=== PATIENT | female | born 1995 | race Caucasian/White ===

== ENCOUNTER → 2018-01-05 | Day surgery (SDC) | payer OTHER ==
[2017-12-01 12:09] VITALS: Ht 167.6 cm; Wt 56.4 kg
[~2018-01-05] VITALS: Ht 167.6 cm; Wt 56.4 kg
[~2018-01-05] MED LIST: ATROPINE SULFATE 0.1 MG/ML 5ML SYR IV PRN; BCPILLS PO; BUPIVACAINE 0.5 % 5 MG/1 ML MPF 30ML VIAL ONE; CITA40TA12 PO; CLINDAMYCIN PHOS 150 MG/ML 2 ML VIAL IV SCH; DEXAMETHASONE SOD INJ 4 MG/ML VIAL ONE; FENTANYL CITRATE INJ 50 MCG/1 ML 2 ML VIAL ONE; HYDR-5688 PO; HYDROCODONE/ACETAMIN 5/325MG TAB ONE; KETOROLAC TROMETHAMINE 30 MG/ML VIAL ONE; LACTATED RINGER'S 1000ML 1,000 ML IV SCH; LIDOCAINE HCL 2% 2 ML VIAL (20MG/ML) ONE; MIDAZOLAM HCL 1 MG/ML 2ML VIAL ONE; NURSING VERBAL MED ORDER ONE; ONDANSETRON INJ 2 MG/ML 2 ML VIAL IV PRN; ONDANSETRON INJ 2 MG/ML 2 ML VIAL ONE; PROPOFOL IV EMULSION 10 MG/ML 20 ML VIAL IV ONE; VISTARIL PO
--- NOTE | 2018-01-05 08:12 | History & Physical Bridge - [place] ---
H&P Re-Evaluation Bridge Note: I have examined the patient, reviewed the History & Physical and in the interval since the performance of the History & Physical I have noted the following changes of clinical significance: No changes noted
--- NOTE | 2018-01-05 08:13 | [facility] Post Operative Brief Note ---
Immediate Operative Summary Operative Date Jan 05, 2018. Pre-Operative Diagnosis Right hallux valgus and Hallux Rigidus Post-Operative Diagnosis Right hallux valgus and Hallux Rigidus Procedure(s) Performed Modified maykel bunionectomy Surgeon Honorio Haddad DPM [employer] Teacher Assistant Surgeon(s) None Estimated Blood Loss Minimal Findings Consistent with Post-Op Diagnosis Specimens None Drains None Anesthesia Type General Complication(s) none Disposition Accompanied Pt To Recovery: no Disposition: Recovery Room / PACU
--- NOTE | 2018-01-05 09:59 | Discharge Instructions-SurgCtr ---
Discharge Instructions Date of Service Jan 05, 2018. Visit Reason for Visit: Right Foot Hallux Rigidus, Pain, Pain D/T Internal Discharge Discharge Diagnosis / Problem: hallux valgus and rigidus Discharge Goals Goal(s): Decrease discomfort, Improve function Activity Recommendations Activity Limitations: per Instructions/Follow-up section Lifting Limitations: no more than 5 pounds Exercise/Sports Limitations: none Shower/Bathe: keep incision dry Weightbearing Status: Right weightbearing (as tolerated) No driving Anesthesia . Post Anesthesia Instructions: If you have had General Anesthesia or IV Sedation: * Do not drive today. * Resume driving when surgeon permits. * Do not make important decisions or sign legal documents today. * Call surgeon for: 1. Temperature elevations greater than 101 degrees F. 2. Uncontrollable pain. 3. Excessive bleeding. 4. Persistent nausea and vomiting. 5. Medication intolerance (nausea, vomiting or rash). * For nausea and vomiting use only clear liquids such as: tea, soda, bouillon until nausea subsides, then gradually increase diet as tolerated. * If you have any concerns or questions, call your surgeon's office. If physician is unavailable and it is an emergency, call 911 or go to the nearest emergency room. . Diet Recommendations Home Diet: no limitations Procedures Procedures Performed: Right Foot Modified Timur Bunionectomy, Hardware Removal Pending Studies Studies pending at discharge: no Medical Emergencies . Who to Call and When: Medical Emergencies: If at any time you feel your situation is an emergency, please call 911 immediately. . Non-Emergent Contact Non-Emergency issues call your: Surgeon Call Non-Emergent contact if: temperature is above 101, your pain is concerning you, wound has increased drainage, wound has increased pain . . "Provider Documentation" section prepared by Honorio Haddad. .
[2018-01-05] MEDS: FENTANYL CITRATE INJ 50 MCG/1 ML 2 ML VIAL IV PRN ×2 (10:09→10:16)
[2018-01-05 11:00] VITALS: BP 99/63; PULSE 57; TEMP 36.8; O2SAT 99
--- NOTE | 2018-01-05 11:06 | Anesthesia Progress Nt - [facility] ---
Anesthesia Post Op Note Date & Time Jan 05, 2018 at 11:05 Vital Signs Pain Intensity: 3 Vital Signs Past 12 Hours Date Time Temp Pulse Resp B/P (MAP) Pulse Ox O2 Delivery O2 Flow Rate FiO2 01/05/18 11:00 36.8 57 16 99/63 (75) 99 Room Air 01/05/18 10:35 53 16 109/69 (82) 99 Room Air 01/05/18 10:28 54 17 99 01/05/18 10:28 55 17 01/05/18 10:25 115/52 01/05/18 10:24 36.9 100 Room Air 01/05/18 10:23 62 14 98 01/05/18 10:23 64 14 01/05/18 10:22 64 15 01/05/18 10:22 61 15 100 01/05/18 10:20 115/59 01/05/18 10:17 68 17 100 01/05/18 10:17 65 17 01/05/18 10:16 64 14 01/05/18 10:16 61 14 100 01/05/18 10:15 106/65 01/05/18 10:11 52 15 01/05/18 10:11 51 15 100 01/05/18 10:10 106/57 01/05/18 10:06 59 21 100 01/05/18 10:06 61 21 01/05/18 10:05 108/55 01/05/18 10:01 49 16 100 01/05/18 10:01 49 16 01/05/18 10:00 98/55 01/05/18 09:59 47 13 01/05/18 09:59 47 13 100 01/05/18 09:55 115/37 01/05/18 09:55 106/54 01/05/18 09:54 95 98 01/05/18 09:54 95 01/05/18 09:54 36.5 71 16 115/37 98 Mask 8 01/05/18 07:24 36.7 62 16 105/59 (74) 98 Room Air Notes Mental Status: alert / awake / arousable, participated in evaluation Pt Amnestic to Procedure: Yes Nausea / Vomiting: adequately controlled Pain: adequately controlled Airway Patency, RR, SpO2: stable & adequate BP & HR: stable & adequate Hydration State: stable & adequate Anesthetic Complications: no major complications apparent
--- NOTE | 2018-01-07 07:23 | DIAGNOSTIC IMAGING REPORT ---
INTRAOPERATIVE RADIOGRAPHS CLINICAL HISTORY: Right foot surgery. FINDINGS: 2 spot fluoroscopic views of the right forefoot are presented. No prior studies are available for comparison at the time of dictation. There has been osteotomy of the distal first metatarsal shaft with a pin transfixing the osteotomy site. Alignment is near-anatomic. Overlying soft tissue edema is noted. IMPRESSION: Intraoperative images of the right forefoot as above. Electronically signed by: Garfield Wilkinson M.D. 01/06/2018 2:55 PM Dictated Date/Time: 01/06/2018 2:53 PM
--- NOTE | 2018-01-09 17:35 | [facility] Operative Report ---
Operative Report Operative Date Jan 05, 2018. Pre-Operative Diagnosis Right hallux valgus and Hallux Rigidus Post-Operative Diagnosis Right hallux valgus and Hallux Rigidus Procedure(s) Performed 1st metatarsophalangeal joint arthroplasty and phalangeal osteotomy Surgeon Honorio Haddad DPM Players Assistant Surgeon(s) None Estimated Blood Loss Minimal Specimens None Drains None Anesthesia Type General Complication(s) none Disposition no Recovery Room / PACU Description of Procedure Patient was taken from preoperative holding and placed in operating on table in normal supine position. He received MAC per anesthesia protocol and a local field block of the right first ray. A time out was performed. Right calf tourniquet was applied. The right foot and ankle were prepped and draped in the usual sterile manner. Tourniquet was inflated. A standard dorsal medial incision was made first sharply and then bluntly. All bleeders were cauterized as appropriate. Next, a t -shaped capsulotomy was performed exposing the medial metatarsal head. The articular cartilage of the 1st MTPJ was noted to be pristine without defects. At this point the patients mother was called and informed of the situation. It was my recommendation to perform a decompression osteotomy rather than cartiva joint implant d/t the fact that cartilage was in pristine shape without signs of any deterioration. Dissection was carried into the first interspace where the deep transverse metatarsal ligament was freed and the adductor hallucis tendon was released from the base of proximal phalanx and fibular sesamoid by way of a "j" stroke. The medial eminence was then resected with the sagittal saw while maintaining the sagittal groove plantarly. A 0.045 K-wire was used as a guide pin and placed in the metatarsal head. A standard Chevron osteotomy cut was made from medial to lateral, transposing the metatarsal head fragment laterally. After appropriate reduction of the intermetatarsal angle, a 0.062 K- wire was placed for temporary fixation of the capital fragment. An Arthrex 3.5 mm cannulated headless compression screw was then placed for permanent fixation in standard AO fashion. Poor fixaiton was noted after multipole attempts. At this point an 0.062 k-wire was thrown in standard AO fashion and bent per AO technique for locking purposes. The k-wire provided excellent compression and held excellent alignment. Care was taken to ensure that the screw did not violate the joint. Fluoroscopy was used for verification of position, and good triplane position was noted. The overhanging ledge of the osteotomy site was reduced with the sagittal saw and contoured with the power klaudia. The dorsal 1st metatarsal head was then resected. Excellent ROM at the 1st MTPJ was noted. up to 70 degrees of dorsiflexion. The surgical site was then irrigated with copious amounts of normal saline. The joint capsule was closed using 3-0 Vicryl with [id number] stitches and a running linear stitch. 4-0 Vicryl was then used in a running fashion to close the subcutaneous tissue. Skin closure was performed using 4-0 nylon. There was noted to be good capillary refill time in all digits following the procedure. Steri strips and a dry sterile dressing was applied. Tourniquet was deflated. The patient tolerated the procedure and anesthesia very well and left the operating room with vital signs stable and neurovascular status grossly intact. After a period of postoperative monitoring, the patient will be discharged home per same-day criteria with instructions for post operative care. I attest to the content of the Intraoperative Record and any orders documented therein. Any exceptions are noted below.
== END | disposition home or self-care (01) ==
LOC: X.SURG 07:07
PROVIDERS: ATTEND Podiatrist
DX: M21.611 Bunion of right foot (principal); M20.11 Hallux valgus (acquired), right foot; M20.22 Hallux rigidus, left foot; K58.9 Irritable bowel syndrome, unspecified; M22.40 Chondromalacia patellae, unspecified knee